=== PATIENT | female | born 1980 | race Caucasian/White ===

== ENCOUNTER → 2021-03-18 11:17 | Outpatient (CLI) | payer OTHER, SELFPAY ==
--- NOTE | ~2021-03-18 | XR_ITS ---
EXAMINATION: XR hand LT min 3V EXAM DATE: 03/18/2021 11:37 INDICATION: M79.642 - Pain in left hand . Injury, initial encounter. TECHNIQUE: Left hand frontal, lateral and oblique projections obtained and reviewed. There is no patience or study for comparison. FINDINGS: There is acute closed posttraumatic oblique fracture through the left 5th proximal phalanx with about 5 mm displacement. Alignment is anatomic. This finding has been indicated, marked on the e xamination for review, clinical correlation. There is overlying soft tissue swelling. Left metacarpa l bones are unremarkable. IMPRESSION: Acute mildly displaced left 5th proximal phalangeal fracture. Reviewed, dictated and finalized at location B.
== END ==
PROVIDERS: PCP Nurse Practitioner Family; Visit Provider Surgery
DX: S62.617A Displaced fracture of proximal phalanx of left little finger, initial encounter for closed fracture (principal); X58.XXXA Exposure to other specified factors, initial encounter
CPT/HCPCS: 73130